=== PATIENT | female | born 1970 | race African-American/Black ===

== ENCOUNTER 2016-09-04 08:29 | Emergency (ER) | payer MEDICAID, MEDICARE ==
[2016-09-04] MEDS ORDERED: NORMAL SALINE 1000 ML 1,000 ML IV PRN (09:38)
[2016-09-04] MEDS ORDERED: OXYCODONE-ACETAMINOPHEN 5-325 MG TABLET PO ONE (09:38)
[2016-09-04] MEDS ORDERED: ONDANSETRON 4 MG TAB.RAPDIS SL ONE (09:38)
--- NOTE | 2016-09-04 09:39 | ER Document Report ---
ED Medical Screen (RME) - General Chief Complaint: Abdominal Pain Stated Complaint: ABDOMINAL AND BACK PAIN Time seen by provider: 09:38 Mode of Arrival: Wheelchair Information source: Patient TRAVEL OUTSIDE OF THE [place] IN LAST 30 DAYS: No - HPI Patient complains to provider of: abdominal pain, diarrhea Onset: Yesterday Onset/Duration: Gradual, Persistent Quality of pain: Achy Severity: Moderate Pain Level: 4 Associated Symptoms: Diarrhea, Nausea Exacerbated by: Denies Relieved by: Denies Notes: 09/04/16 09:39 46-year-old female presents to the emergency room complaining of crampy lower abdominal pain with diarrhea that's been going on since yesterday, she denies any blood in her stools, no dysuria or hematuria, no fever or chills, no sick contacts, no history of similar symptoms previously, no known gastroenterological disorders, no previous abdominal surgeries - Related Data Allergies/Adverse Reactions: No Known Allergies Allergy (Verified 09/04/16 08:39) Past Medical History - Social History Chew tobacco use (# tins/day): No Frequency of alcohol use: None Drug Abuse: None - Past Medical History Cardiac Medical History: Reports: Hx Hypertension Endocrine Medical History: Reports: Hx Diabetes Mellitus Type 2 Renal/ Medical History: Denies: Hx Peritoneal Dialysis Past Surgical History: Reports: Hx Breast Surgery - lumpectomy right, Hx Section - x 1, Hx Gynecologic Surgery - lumpectomy right breast - Immunizations Immunizations up to date: Yes Hx Diphtheria, Pertussis, Tetanus Vaccination: Yes Physical Exam - Vital signs Vitals: Temp Pulse Resp BP Pulse Ox 97.6 F 98 14 135/85 H 100 09/04/16 08:40 09/04/16 08:40 09/04/16 08:40 09/04/16 08:40 09/04/16 08:40 Course - Vital Signs Vital signs: Temp Pulse Resp BP Pulse Ox 97.6 F 98 14 135/85 H 100 09/04/16 08:40 09/04/16 08:40 09/04/16 08:40 09/04/16 08:40 09/04/16 08:40
--- NOTE | 2016-09-04 10:34 | ER Document Report ---
ED GI/ - General Chief Complaint: Abdominal Pain Stated Complaint: ABDOMINAL AND BACK PAIN Time seen by provider: 10:27 Mode of Arrival: Wheelchair Information source: Patient Notes: 46-year-old female presents to ED for complain of upper and middle abdominal pain since yesterday. She says at times it aches and at times is crampy. She denies any vomiting but states she has had 4 diarrheal stools and has been nauseated. Denies any fevers denies any bloody stools. TRAVEL OUTSIDE OF THE [place] IN LAST 30 DAYS: No - HPI Patient complains to provider of: Abdominal pain, Diarrhea. No: Vomiting Onset: Yesterday Timing/Duration: Gradual Quality of pain: Achy, Cramping Severity at maximum: Severe Severity in ED: Moderate Pain Level: 3 Location: Other - At times his uppers at times is middle and at times is lower abdominal pain Vaginal bleeding (Compared to normal period): None LMP: 08/27/2016 Associated symptoms: Diarrhea, Nausea Exacerbated by: Supine, Movement, Walking Relieved by: Denies Similar symptoms previously: Yes Recently seen / treated by doctor: No - Related Data Allergies/Adverse Reactions: No Known Allergies Allergy (Verified 09/04/16 08:39) Past Medical History - General Information source: Patient - Social History Smoking Status: Never Smoker Cigarette use (# per day): No Chew tobacco use (# tins/day): No Smoking Education Provided: No Frequency of alcohol use: None Drug Abuse: None Occupation: none Lives with: Family Family History: Arthritis, CAD, DM, Hyperlipidemia, Hypertension Patient has suicidal ideation: No Patient has homicidal ideation: No - Past Medical History Cardiac Medical History: Reports: Hx Hypertension Pulmonary Medical History: Reports: None EENT Medical History: Reports: None Neurological Medical History: Reports: None Endocrine Medical History: Reports: Hx Diabetes Mellitus Type 2 Renal/ Medical History: Reports: None Malignancy Medical History: Reports: None GI Medical History: Reports: Hx Gastritis Musculoskeltal Medical History: Reports Hx Arthritis Skin Medical History: Reports None Psychiatric Medical History: Reports: Hx Anxiety, Hx Depression Traumatic Medical History: Reports: None Infectious Medical History: Reports: None Past Surgical History: Reports: Hx Breast Surgery - lumpectomy right, Hx Section - x 1 - Immunizations Immunizations up to date: Yes Hx Diphtheria, Pertussis, Tetanus Vaccination: Yes Hx Pneumococcal Vaccination: 11/01/10 Review of Systems - Review of Systems Constitutional: No symptoms reported EENT: No symptoms reported Cardiovascular: No symptoms reported Respiratory: No symptoms reported Gastrointestinal: Abdominal pain, Diarrhea, Nausea Genitourinary: No symptoms reported Female Genitourinary: No symptoms reported Musculoskeletal: No symptoms reported Skin: No symptoms reported Hematologic/Lymphatic: No symptoms reported Neurological/Psychological: No symptoms reported -: Yes All other systems reviewed and negative Physical Exam - Vital signs Vitals: Temp Pulse Resp BP Pulse Ox 97.6 F 98 14 135/85 H 100 09/04/16 08:40 09/04/16 08:40 09/04/16 08:40 09/04/16 08:40 09/04/16 08:40 Interpretation: Normal - General General appearance: Appears well, Alert - HEENT Head: Normocephalic, Atraumatic Eyes: Normal Pupils: PERRL - Respiratory Respiratory status: No respiratory distress Chest status: Nontender Breath sounds: Normal Chest palpation: Normal - Cardiovascular Rhythm: Regular Heart sounds: Normal auscultation Murmur: No - Abdominal Inspection: Normal Distension: No distension Bowel sounds: Normal Tenderness: Tender - Generalized Organomegaly: No organomegaly - Back Back: Normal, Nontender - Extremities General upper extremity: Normal inspection, Nontender, Normal color, Normal ROM , Normal temperature General lower extremity: Normal inspection, Nontender, Normal color, Normal ROM , Normal temperature, Normal weight bearing. No: Clemencia's sign - Neurological Neuro grossly intact: Yes Cognition: Normal Orientation: AAOx4 Trudy Coma Scale Eye Opening: Spontaneous [place] Coma Scale Verbal: Oriented [place] Coma Scale Motor: Obeys Commands [place] Coma Scale Total: 15 Speech: Normal Motor strength normal: LUE, RUE, LLE, RLE Sensory: Normal - Psychological Associated symptoms: Normal affect, Normal mood - Skin Skin Temperature: Warm Skin Moisture: Dry Skin Color: Normal Course - Re-evaluation Re-evalutation: 09/04/16 14:51 Discussed labs and assessment with Dr. Murray and a KUB and CT of abdomen and pelvis were ordered KUB and CT were both negative. Labs KUB and CT were discussed with patient. We'll discharge patient home with nausea medicine and have her follow-up with her primary doctor. - Vital Signs Vital signs: Temp Pulse Resp BP Pulse Ox 97.9 F 83 18 140/81 H 98 09/04/16 15:27 09/04/16 15:27 09/04/16 15:27 09/04/16 15:27 09/04/16 15:27 - Laboratory Result Diagrams: 09/04/16 09:45 09/04/16 09:45 Laboratory results interpreted by me: 09/04/16 09/04/16 09/04/16 09:45 09:45 09:45 RDW 14.1 H Glucose 131 H Urine Glucose (UA) >=500 H Urine Ketones 20 H - Diagnostic Test Radiology reviewed: Image reviewed, Reports reviewed Discharge - Discharge Clinical Impression: Abdominal pain Qualifiers: Abdominal location: generalized Qualified Code(s): R10.84 - Generalized abdominal pain Back pain Qualifiers: Back pain location: low back pain Chronicity: chronic Back pain laterality: bilateral Sciatica presence: without sciatica Qualified Code(s): M54.5 - Low back pain Condition: Stable Disposition: HOME, SELF-CARE Additional Instructions: ABDOMINAL PAIN: There are many causes of abdominal pain. Pain can mean a serious problem requiring surgery (such as appendicitis). It can also be an innocent problem that goes away on its own (such as a viral infection). Often, time must pass to determine the cause of pain. The physician does not feel that hospitalization is necessary, at present. Things may change within the next 24 hours. Call the doctor or come back for re- examination if any problems occur, such as: (1) Pain that becomes more severe, steady, or becomes concentrated in one specific area. Also, pain that is more severe with movement or coughing. (2) Vomiting that persists or becomes more frequent. (3) Blood in the vomitus, urine, or bowel movements. Blood in the stool may have a tarry or black appearance. (4) Shaking chills or fever greater than 100 degrees F. (5) The abdomen becomes more distended or swollen. (6) Bowel movements cease. (7) Failure to improve as expected. ANTINAUSEA MEDICATION: You have been given a medication to suppress nausea and vomiting. This type of medication can be given as a shot, pill, or suppository. It will usually last for many hours. Pills and shots usually last six to eight hours, suppositories last about 12 hours. For the typical illness, only one or two doses of the medication may be necessary. Mild lightheadedness may occur. This type of medicine can cause drowsiness. Do not drive or operate dangerous machinery while under its influence. Do not mix with alcohol. See your doctor at once if you have muscle spasms or tightness, or uncontrollable motions (particularly of the neck, mouth, or jaw). Persistent vomiting or severe lightheadedness should also be evaluated by the physician. ORAL NARCOTIC MEDICATION: You have been given a prescription for pain control. This medication is a narcotic. It's best taken with food, as nausea can result if taken on an empty stomach. Don't operate machinery or drive within six hours of taking this medication. Do not combine this medicine with alcohol, or with any medication which can cause sedation (such as cold tablets or sleeping pills) unless you get permission from the physician. Narcotics tend to cause constipation. If possible, drink plenty of fluids and eat a diet high in fiber and fruits. Please be aware that prescription narcotics also have the potential for abuse. People become addicted to these medications because of the general sense of wellbeing that they induce. This feeling along with a significant reduction in tension, anxiety, and aggression provides a stimulating seductive quality to these drugs. Once your pain is under control, we encourage you to discard your unused narcotics. A copy of reports of your labs CT and x-ray were sent home with you to follow- up with your primary doctor. Please complete the patient's satisfaction survey if you get one and return. If you do not receive a survey you can go to [facility] website [email or web address] and place your comments about your very good care. Thank you very much. It was a pleasure be in your medical provider today. FOLLOW-UP CARE: If you have been referred to a physician for follow-up care, call the physician s office for an appointment as you were instructed or within the next two days. If you experience worsening or a significant change in your symptoms, notify the physician immediately or return to the Emergency Department at any time for re-evaluation. Prescriptions: Hydrocodone/Acetaminophen [[place] 5-325 mg Tablet] 1 tab PO Q6HP PRN #7 tablet PRN Reason: Ondansetron [Zofran Odt 4 mg Tablet] 1 tab PO Q6H #15 tab.rapdis Forms: Elevated Blood Pressure Referrals: HUYEN BHANDARI MD [Primary Care Provider] - Follow up as needed
[2016-09-04 11:05] LABS: ABSOLUTE EOSINOPHILS # (AUTO) 0.1 10^3/uL (0.0-0.6); ABSOLUTE LYMPHOCYTES (AUTO) 1.7 10^3/uL (0.5-4.7); ABSOLUTE MONOCYTES (AUTO) 0.7 10^3/uL (0.1-1.4); ABSOLUTE NEUT (AUTO) 5.6 10^3/uL (1.7-8.2); BASOPHILS % (AUTO) 0.2 % (0-2); EOSINOPHILS % (AUTO) 0.8 % (0-6); HEMATOCRIT 38.8 % (36.0-47.0); HEMOGLOBIN 12.8 g/dL (12.0-15.5); HGB HCT DIFFERENCE -0.4; LYMPHOCYTES % (AUTO) 21.2 % (13-45); MEAN CORPUSCULAR HGB CONC 32.9 g/dL (32.0-36.0); MEAN CORPUSCULAR VOLUME 82 fl (80-97); MONOCYTES % (AUTO) 8.7 % (3-13); RED BLOOD COUNT 4.73 10^6/uL (3.72-5.28); RED CELL DISTRIBUTION WIDTH 14.1 % (11.5-14.0); SEGMENTED NEUTROPHILS % (AUTO) 69.1 % (42-78); WHITE BLOOD COUNT 8.1 10^3/uL (4.0-10.5)
[2016-09-04 11:19] LABS: APPEARANCE,URINE CLEAR; BILIRUBIN,URINE NEGATIVE (NEGATIVE); GLUCOSE, URINE >=500 mg/dL (NEGATIVE); KETONES,URINE 20 mg/dL (NEGATIVE); LEUKOCYTE ESTERASE,URINE NEGATIVE (NEGATIVE); NITRITE,URINE NEGATIVE (NEGATIVE); PROTEIN,URINE NEGATIVE (NEGATIVE); URINE SPECIFIC GRAVITY 1.036; UROBILINOGEN,URINE NEGATIVE mg/dL (<2.0)
[2016-09-04 11:25] LABS: ALANINE AMINOTRANSFERASE 29 U/L (9-52); ALBUMIN 4.2 g/dL (3.5-5.0); ALKALINE PHOSPHATASE 97 U/L (38-126); ANION GAP 13 (5-19); ASPARTATE AMINO TRANSFERASE 22 U/L (14-36); BILIRUBIN,DIRECT 0.3 mg/dL (0.0-0.4); BILIRUBIN,TOTAL 0.6 mg/dL (0.2-1.3); BLOOD UREA NITROGEN 8 mg/dL (7-20); CALCIUM 9.3 mg/dL (8.4-10.2); CARBON DIOXIDE 25 mmol/L (22-30); CHLORIDE 105 mmol/L (98-107); GLUCOSE 131 mg/dL (75-110); LIPASE 69.9 U/L (23-300); POTASSIUM 3.7 mmol/L (3.6-5.0); SODIUM 143.4 mmol/L (137-145); TOTAL PROTEIN 7.6 g/dL (6.3-8.2)
[2016-09-04 15:28] VITALS: BP 140/81
== END 2016-09-04 15:28 | disposition home or self-care (01) ==
LOC: ER 08:29
DX: R10.84 Generalized abdominal pain (principal); M54.5 Low back pain; G89.29 Other chronic pain; R19.7 Diarrhea, unspecified; R11.0 Nausea; I10 Essential (primary) hypertension; E11.9 Type 2 diabetes mellitus without complications
CPT/HCPCS: 99284; 96360; 36415; 87086; 83690; 85025; 80053; 81001; 74000; 74177; A9270 ×2; J7030; S0119

== ENCOUNTER 2016-12-08 07:52 | Emergency (ER) | payer MEDICARE, MEDICAID ==
[2016-12-08 07:59] VITALS: BP 144/75
[2016-12-08] MEDS ORDERED: LIDOCAINE 1% INJ-PF (10 MG/ML) 30 ML SDV INJ ONE (08:12)
[2016-12-08] MEDS ORDERED: SULFAMETHOXAZOLE/TRIMETHOPRIM 800-160 MG TABLET PO ONE (08:13)
--- NOTE | 2016-12-08 09:36 | ER Document Report ---
ED Skin Rash/Insect Bite/Abscs - General Chief Complaint: Abscess Stated Complaint: POSSIBLE ABSCESS Time Seen by Provider: 12/08/16 08:05 Mode of Arrival: Ambulatory Information source: Patient Notes: Patient is a 46-year-old female with a history of abscesses who presents to the ER today for an abscess to her right axilla 4 days. Patient states that it is gotten very painful and larger over the past couple of days. She denies any fever, chills, drainage, history of MRSA. TRAVEL OUTSIDE OF THE [place] IN LAST 30 DAYS: No - Related Data Allergies/Adverse Reactions: No Known Allergies Allergy (Verified 09/04/16 08:39) Past Medical History - General Information source: Patient - Social History Smoking Status: Never Smoker Chew tobacco use (# tins/day): No Frequency of alcohol use: None Drug Abuse: None Family History: Arthritis, CAD, DM, Hyperlipidemia, Hypertension Patient has suicidal ideation: No Patient has homicidal ideation: No - Past Medical History Cardiac Medical History: Reports: Hx Hypertension Endocrine Medical History: Reports: Hx Diabetes Mellitus Type 2 Renal/ Medical History: Denies: Hx Peritoneal Dialysis GI Medical History: Reports: Hx Gastritis Musculoskeltal Medical History: Reports Hx Arthritis Psychiatric Medical History: Reports: Hx Anxiety, Hx Depression Past Surgical History: Reports: Hx Breast Surgery - lumpectomy right, Hx Section - x 1, Hx Gynecologic Surgery - lumpectomy right breast - Immunizations Immunizations up to date: Yes Hx Diphtheria, Pertussis, Tetanus Vaccination: Yes Hx Pneumococcal Vaccination: 03/20/10 Review of Systems - Review of Systems Constitutional: No symptoms reported EENT: No symptoms reported Cardiovascular: No symptoms reported Respiratory: No symptoms reported Gastrointestinal: No symptoms reported Genitourinary: No symptoms reported Female Genitourinary: No symptoms reported Musculoskeletal: No symptoms reported Skin: See HPI Hematologic/Lymphatic: No symptoms reported Neurological/Psychological: No symptoms reported Physical Exam - Vital signs Vitals: Temp Pulse Resp BP Pulse Ox 98 F 85 20 144/75 H 100 12/08/16 07:56 12/08/16 07:56 12/08/16 07:56 12/08/16 07:56 12/08/16 07:56 - Notes Notes: PHYSICAL EXAMINATION: GENERAL: Well-appearing and in no acute distress. HEAD: Atraumatic, normocephalic. EYES: Pupils equal round and reactive to light, extraocular movements intact, sclera anicteric, conjunctiva are normal. NECK: Normal range of motion, supple without lymphadenopathy LUNGS: CTAB and equal. No wheezes rales or rhonchi. HEART: Regular rate and rhythm without murmurs EXTREMITIES: Normal range of motion, no pitting edema. No cyanosis. NEUROLOGICAL: Cranial nerves grossly intact. Normal sensory/motor exams. PSYCH: Normal mood, normal affect. SKIN: Warm, Dry, normal turgor, 3cm in diameter abscess, fluctuant, erythematous to right axilla, tender Course - Re-evaluation Re-evalutation: 12/08/16 09:33 This was incised and drained successfully. Patient tolerated well. Patient was placed on Bactrim. Culture is pending. - Vital Signs Vital signs: Temp Pulse Resp BP Pulse Ox 98 F 85 20 144/75 H 100 12/08/16 07:56 12/08/16 07:56 12/08/16 07:56 12/08/16 07:56 12/08/16 07:56 Procedures - Incision and Drainage Right Arm Time completed: 09:30 Type: Simple Anesthetic type: 1% Lidocaine mL's of anesthetic: 4 Blade size: 11 I&D procedure: Betadine prep applied Incision Method: Incision made by scalpel Amount/type of drainage: purulent drainage and some blood, foul odor Discharge - Discharge Clinical Impression: Abscess Condition: Stable Disposition: HOME, SELF-CARE Instructions: Post Incision and Drainage, Trimethoprim-Sulfa ([facility]) Additional Instructions: Return immediately for any new or worsening symptoms. Follow up with primary care provider, call tomorrow to make followup appointment. Prescriptions: Clotrimazole [Mycelex 10 mg Adrián] 10 mg MM DAILY #14 adrián Sulfamethoxazole/Trimethoprim [Bactrim Ds Tablet] 1 each PO BID #20 tablet
== END 2016-12-08 09:45 | disposition home or self-care (01) ==
LOC: ER 07:52
PROC: 0H9BXZZ Drainage of Right Upper Arm Skin, External Approach (ICD-10-PCS; principal; 2016-12-08)
DX: L02.411 Cutaneous abscess of right axilla (principal); E11.9 Type 2 diabetes mellitus without complications; I10 Essential (primary) hypertension
CPT/HCPCS: 10060; 99283; 87070; 87205; 87075; 87077; 87186; J3490; A9270

== ENCOUNTER 2017-06-22 20:36 | Emergency (ER) | payer MEDICARE, OTHER ==
[2017-06-22] MEDS ORDERED: ACETAMINOPHEN 325 MG TABLET PO ONE (20:56)
[2017-06-22] MEDS ORDERED: IBUPROFEN 600 MG TABLET PO ONE (21:49)
[2017-06-22 21:51] LABS: A TYPE INFLUENZA AG NEGATIVE (NEGATIVE); B INFLUENZA AG POSITIVE (NEGATIVE)
--- NOTE | 2017-06-22 22:08 | RADIOLOGY REPORT (SQ) ---
EXAM DESCRIPTION: CHEST PA/LAT COMPLETED DATE/TIME: 06/22/2017 9:59 pm REASON FOR STUDY: cough, fever COMPARISON: 08/31/2015 EXAM PARAMETERS: NUMBER OF VIEWS: two views TECHNIQUE: Digital Frontal and Lateral radiographic views of the chest acquired. RADIATION DOSE: NA LIMITATIONS: none FINDINGS: LUNGS AND PLEURA: No opacities, masses or pneumothorax. No pleural effusion. MEDIASTINUM AND HILAR STRUCTURES: No masses or contour abnormalities. HEART AND VASCULAR STRUCTURES: Heart normal size. No evidence for failure. BONES: No acute findings. HARDWARE: None in the chest. OTHER: No other significant finding. IMPRESSION: NO SIGNIFICANT RADIOGRAPHIC FINDING IN THE CHEST. TECHNICAL DOCUMENTATION: JOB ID: [id number] [employer]- All Rights Reserved
--- NOTE | 2017-06-22 22:24 | ER Document Report ---
ED General - General Chief Complaint: Flu Symptoms Stated Complaint: FEVER,COUGH Time Seen by Provider: 06/22/17 21:48 Notes: Patient is a 46-year-old female without significant past medical history presents with cough, sputum production, body aches, nausea, vomiting and diarrhea for the past 2 days. She did receive the influenza vaccine this year. Multiple sick contacts with the same symptoms. She denies any shortness of breath, syncope, or inability to tolerate oral fluids. No dysuria. She describes her body aches as a constant, aching diffuse body pain. She has been trying ibuprofen and Tylenol with some improvement of the pain. Nothing worsens her symptoms. She has not seen her general doctor regarding today's concerns. TRAVEL OUTSIDE OF THE [place] IN LAST 30 DAYS: No - Related Data Allergies/Adverse Reactions: No Known Allergies Allergy (Verified 06/22/17 20:38) Past Medical History - General Information source: Patient - Social History Smoking Status: Never Smoker Frequency of alcohol use: None Drug Abuse: None Lives with: Family Family History: Arthritis, CAD, DM, Hyperlipidemia, Hypertension Patient has suicidal ideation: No Patient has homicidal ideation: No - Past Medical History Cardiac Medical History: Reports: Hx Hypertension Endocrine Medical History: Reports: Hx Diabetes Mellitus Type 2 Renal/ Medical History: Denies: Hx Peritoneal Dialysis GI Medical History: Reports: Hx Gastritis Musculoskeltal Medical History: Reports Hx Arthritis Psychiatric Medical History: Reports: Hx Anxiety, Hx Depression Past Surgical History: Reports: Hx Breast Surgery - lumpectomy right, Hx Section - x 1, Hx Gynecologic Surgery - lumpectomy right breast - Immunizations Immunizations up to date: Yes Hx Diphtheria, Pertussis, Tetanus Vaccination: Yes Hx Pneumococcal Vaccination: 03/20/10 Review of Systems - Review of Systems Notes: Constitutional: Positive for fever. HENT: Negative for sore throat. Eyes: Negative for visual changes. Cardiovascular: Negative for chest pain. Respiratory: Negative for shortness of breath. Positive for cough Gastrointestinal: Negative for abdominal pain, positive for vomiting and diarrhea Genitourinary: Negative for dysuria. Musculoskeletal: Negative for back pain. Skin: Negative for rash. Neurological: Negative for headaches, weakness or numbness. 10 point ROS negative except as marked above and in HPI. Physical Exam - Vital signs Vitals: Temp Pulse BP Pulse Ox 102.6 F H 109 H 144/74 H 98 02/03/18 20:54 06/22/17 20:54 06/22/17 20:54 06/22/17 20:54 Interpretation: Tachycardic, Febrile Notes: PHYSICAL EXAMINATION: GENERAL: Appears uncomfortable but in no acute distress HEAD: Atraumatic, normocephalic. EYES: Pupils equal round and reactive to light, extraocular movements intact, sclera anicteric, conjunctiva are normal. ENT: nares patent, oropharynx clear without exudates. Moderately dry mucous membranes. NECK: Normal range of motion, supple without lymphadenopathy LUNGS: Breath sounds clear to auscultation bilaterally and equal. No wheezes rales or rhonchi. HEART: Regular tachycardia without murmurs ABDOMEN: Soft, nontender, normoactive bowel sounds. No guarding, no rebound. No masses appreciated. EXTREMITIES: Normal range of motion, no pitting or edema. No cyanosis. NEUROLOGICAL: No focal neurological deficits. Moves all extremities spontaneously and on command. PSYCH: Normal mood, normal affect. SKIN: Warm, Dry, normal turgor, no rashes or lesions noted. Course - Re-evaluation Re-evalutation: 06/22/17 22:26 Patient presents with cough, vomiting, diarrhea, and fever at home consistent with a diagnosis of influenza. Influenza testing is positive. Patient is overall well in appearance, in no acute distress. Lung sounds clear. Able to tolerate oral intake without difficulty here in the emergency department. After risks and benefits conversation with the patient regarding the use of Tamiflu, they have elected to use supportive care without Tamiflu based on concerns about lack of efficacy as well as the side effect profile. At this time will discharge with return precautions and follow-up recommendations. Verbal discharge instructions given a the bedside and opportunity for questions given. Medication warnings reviewed. Patient is in agreement with this plan and has verbalized understanding of return precautions and the need for primary care follow-up in the next 24-72 hours. - Vital Signs Vital signs: Temp Pulse Resp BP Pulse Ox 99.9 F 98 18 133/74 H 98 06/22/17 22:44 06/22/17 22:44 06/22/17 22:44 06/22/17 22:44 06/22/17 22:44 - Diagnostic Test Radiology reviewed: Image reviewed, Reports reviewed Radiology results interpreted by me: 06/22/17 22:26 Chest x-ray: No acute infiltrate or pneumothorax Discharge - Discharge Clinical Impression: Influenza B Condition: Stable Disposition: HOME, SELF-CARE Additional Instructions: You have influenza. There is no treatment that is effective for this diagnosis other than supportive care at home. This includes drinking plenty of fluids, using Tylenol or ibuprofen as needed for fever and discomfort, and Zofran as needed for nausea and vomiting. Please follow closely with you primary care physician the next 1-2 days regarding this diagnosis. Return to the emergency department immediately if you began to have persistent vomiting prevents you from being able to keep fluids down for more than 12 hours, you pass out, you began having difficulty breathing, you become confused, or you have any other symptoms that are worrisome to you. Forms: Return to Work Referrals: HUYEN BHANDARI MD [Primary Care Provider] - Follow up as needed
[2017-06-22] MEDS ORDERED: ONDANSETRON ODT 4 MG TAB (6 TAB/ER DISP) PO PRN (22:27)
[2017-06-22 22:46] VITALS: BP 133/74
== END 2017-06-22 22:44 | disposition home or self-care (01) ==
LOC: ER 20:36
DX: J10.1 Influenza due to other identified influenza virus with other respiratory manifestations (principal); R50.9 Fever, unspecified; M79.1 Myalgia; I10 Essential (primary) hypertension; E11.9 Type 2 diabetes mellitus without complications
CPT/HCPCS: 99283; 87804; 71046; A9270 ×3

== ENCOUNTER 2017-06-27 09:24 | Emergency (ER) | payer MEDICARE, OTHER ==
--- NOTE | 2017-06-27 10:56 | ER Document Report ---
HPI - HPI Patient complains to provider of: Sore throat, congestion Onset: Other - 4 days Onset/Duration: Persistent Quality of pain: Achy Pain Level: 5 Context: Patient states she was recently diagnosed with the flu. Patient states for the past 4 days she has had sore throat and congestion. Patient denies any fever. Patient complains of difficulty swallowing due to throat discomfort. Associated Symptoms: Body/muscle aches, Nonproductive cough, Rhinnorhea, Sore throat. denies: Fever Exacerbated by: Denies Relieved by: Denies Similar symptoms previously: No Recently seen / treated by doctor: Yes - ROS ROS below otherwise negative: Yes Systems Reviewed and Negative: Yes All other systems reviewed and negative - CONSTITUTIONAL Constitutional: DENIES: Fever - EENT EENT: REPORTS: Sore Throat - RESPIRATORY Respiratory: REPORTS: Coughing - GASTROINTESTINAL Gastrointestinal: DENIES: Patient vomiting - REPRODUCTIVE Reproductive: DENIES: : - MUSCULOSKELETAL Musculoskeletal: DENIES: Back Pain, Neck Pain - DERM Skin Color: Normal Skin Problems: None Past Medical History - General Information source: Patient - Social History Smoking Status: Never Smoker Chew tobacco use (# tins/day): No Frequency of alcohol use: None Drug Abuse: None Lives with: Family Family History: Arthritis, CAD, DM, Hyperlipidemia, Hypertension Patient has suicidal ideation: No Patient has homicidal ideation: No - Past Medical History Cardiac Medical History: Reports: Hx Hypertension Endocrine Medical History: Reports: Hx Diabetes Mellitus Type 2 Renal/ Medical History: Denies: Hx Peritoneal Dialysis GI Medical History: Reports: Hx Gastritis Musculoskeltal Medical History: Reports Hx Arthritis Psychiatric Medical History: Reports: Hx Anxiety, Hx Depression Past Surgical History: Reports: Hx Breast Surgery - lumpectomy right, Hx Section - x 1, Hx Gynecologic Surgery - lumpectomy right breast - Immunizations Immunizations up to date: Yes Hx Diphtheria, Pertussis, Tetanus Vaccination: Yes Hx Pneumococcal Vaccination: 03/20/10 Vertical Provider Document - CONSTITUTIONAL Agree With Documented VS: Yes Exam Limitations: No Limitations General Appearance: WD/WN, No Apparent Distress - INFECTION CONTROL TRAVEL OUTSIDE OF THE [place] IN LAST 30 DAYS: No - HEENT HEENT: Atraumatic, Normocephalic, Pharyngeal Tenderness, Pharyngeal Erythema - NECK Neck: Lymphadenopathy-Left, Lymphadenopathy-Right - RESPIRATORY Respiratory: Breath Sounds Normal, No Respiratory Distress O2 Sat by Pulse Oximetry: 98 - CARDIOVASCULAR Cardiovascular: Regular Rate, Regular Rhythm, No Murmur - BACK Back: Normal Inspection - MUSCULOSKELETAL/EXTREMETIES Musculoskeletal/Extremeties: MAEW - NEURO Level of Consciousness: Awake, Alert, Appropriate Motor/Sensory: No Motor Deficit - DERM Integumentary: Warm, Dry, No Rash Course - Re-evaluation Re-evalutation: 06/27/17 13:10 Respirations unlabored. Patient tolerating oral fluids without difficulty. Patient managing oral secretions. 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 Discussed results of studies with patient, patient encouraged to follow-up with primary doctor for recheck. 06/27/17 13:13 The patient has been informed that they may have pre-hypertension or hypertension based on a blood pressure reading in the emergency department. I recommend that patient call the primary care provider listed on their discharge instructions or a physician of their choice by this week to arrange follow-up for further evaluation of possible pre-hypertension or hypertension. Controlled substance database reviewed - Vital Signs Vital signs: Temp Pulse Resp BP Pulse Ox 98.1 F 87 20 156/88 H 98 06/27/17 09:46 06/27/17 09:46 06/27/17 09:46 06/27/17 09:46 06/27/17 09:46 - Laboratory Result Diagrams: 06/27/17 11:00 06/27/17 11:00 Laboratory results interpreted by me: 06/27/17 13:10 Labs- Entire Visit 06/27/17 06/27/17 06/27/17 11:00 11:00 11:00 WBC 8.0 RBC 4.79 Hgb 13.1 Hct 38.9 MCV 81 MCH 27.3 MCHC 33.6 RDW 14.2 H Plt Count 240 Seg Neutrophils % 54.9 Lymphocytes % 35.7 Monocytes % 8.6 Eosinophils % 0.5 Basophils % 0.3 Absolute Neutrophils 4.4 Absolute Lymphocytes 2.8 Absolute Monocytes 0.7 Absolute Eosinophils 0.0 Absolute Basophils 0.0 Sodium 142.6 Potassium 3.9 Chloride 105 Carbon Dioxide 27 Anion Gap 11 BUN 9 Creatinine 0.56 Est GFR ( Amer) > 60 Est GFR (Non-Af Amer) > 60 Glucose 254 H Calcium 9.8 Total Bilirubin 0.4 Direct Bilirubin 0.4 Neonat Total Bilirubin Not Reportable Neonat Direct Bilirubin Not Reportable Neonat Indirect Bili Not Reportable AST 21 ALT 36 Alkaline Phosphatase 99 Total Protein 7.5 Albumin 4.2 Monotest NEGATIVE Group A Strep Rapid 06/27/17 11:00 WBC RBC Hgb Hct MCV MCH MCHC RDW Plt Count Seg Neutrophils % Lymphocytes % Monocytes % Eosinophils % Basophils % Absolute Neutrophils Absolute Lymphocytes Absolute Monocytes Absolute Eosinophils Absolute Basophils Sodium Potassium Chloride Carbon Dioxide Anion Gap BUN Creatinine Est GFR ( Amer) Est GFR (Non-Af Amer) Glucose Calcium Total Bilirubin Direct Bilirubin Neonat Total Bilirubin Neonat Direct Bilirubin Neonat Indirect Bili AST ALT Alkaline Phosphatase Total Protein Albumin Monotest Group A Strep Rapid NEGATIVE - Diagnostic Test Radiology reviewed: Reports reviewed Discharge - Discharge Clinical Impression: Hx of essential hypertension Pharyngitis Qualifiers: Pharyngitis/tonsillitis etiology: unspecified etiology Qualified Code(s): J02.9 - Acute pharyngitis, unspecified Condition: Stable Disposition: HOME, SELF-CARE Instructions: Oral Narcotic Medication ([facility]), Sore Throat ([facility]) Additional Instructions: Return immediately for any new or worsening symptoms Followup with your primary care provider, call tomorrow to make a followup appointment Prescriptions: Oxycodone HCl/Acetaminophen [Percocet 5-325 mg Tablet] 1 tab PO ASDIR PRN #10 tablet PRN Reason: Forms: Elevated Blood Pressure Referrals: HUYEN BHANDARI MD [Primary Care Provider] - Follow up tomorrow
[2017-06-27 11:22] LABS: ABSOLUTE LYMPHOCYTES (AUTO) 2.8 10^3/uL (0.5-4.7); ABSOLUTE MONOCYTES (AUTO) 0.7 10^3/uL (0.1-1.4); ABSOLUTE NEUT (AUTO) 4.4 10^3/uL (1.7-8.2); BASOPHILS % (AUTO) 0.3 % (0-2); EOSINOPHILS % (AUTO) 0.5 % (0-6); HEMATOCRIT 38.9 % (36.0-47.0); HEMOGLOBIN 13.1 g/dL (12.0-15.5); LYMPHOCYTES % (AUTO) 35.7 % (13-45); MEAN CORPUSCULAR HEMOGLOBIN 27.3 pg (27.0-33.4); MEAN CORPUSCULAR HGB CONC 33.6 g/dL (32.0-36.0); MEAN CORPUSCULAR VOLUME 81 fl (80-97); MONOCYTES % (AUTO) 8.6 % (3-13); PLATELET COUNT 240 10^3/uL (150-450); RED BLOOD COUNT 4.79 10^6/uL (3.72-5.28); RED CELL DISTRIBUTION WIDTH 14.2 % (11.5-14.0); SEGMENTED NEUTROPHILS % (AUTO) 54.9 % (42-78); TOTAL CELLS COUNTED % (AUTO) 100 %
[2017-06-27] MEDS ORDERED: OXYCODONE-ACETAMINOPHEN 5-325 MG TABLET PO ONE (11:38)
[2017-06-27] MEDS ORDERED: DEXAMETHASONE SOD PHOS INJ 10 MG/1 ML VIAL IV ONE (11:38)
[2017-06-27 11:48] LABS: ALANINE AMINOTRANSFERASE 36 U/L (9-52); ALBUMIN 4.2 g/dL (3.5-5.0); ALKALINE PHOSPHATASE 99 U/L (38-126); ANION GAP 11 (5-19); ASPARTATE AMINO TRANSFERASE 21 U/L (14-36); BILIRUBIN,DIRECT 0.4 mg/dL (0.0-0.4); BILIRUBIN,TOTAL 0.4 mg/dL (0.2-1.3); BLOOD UREA NITROGEN 9 mg/dL (7-20); CALCIUM 9.8 mg/dL (8.4-10.2); CARBON DIOXIDE 27 mmol/L (22-30); CHLORIDE 105 mmol/L (98-107); GLUCOSE 254 mg/dL (75-110); POTASSIUM 3.9 mmol/L (3.6-5.0); SODIUM 142.6 mmol/L (137-145); TOTAL PROTEIN 7.5 g/dL (6.3-8.2)
--- NOTE | 2017-06-27 12:28 | RADIOLOGY REPORT (SQ) ---
EXAM DESCRIPTION: CT SOFT TISSUE NECK WITH COMPLETED DATE/TIME: 06/27/2017 12:17 pm REASON FOR STUDY: throat pain, diff swallowing COMPARISON: None. TECHNIQUE: Post IV contrasted scanning from skull base through lung apices with review of bone, soft tissue and lung windows. Reconstructed coronal and sagittal MPR images reviewed. All images stored on PACS. All CT scanners at this facility use dose modulation, iterative reconstruction, and/or weight based d osing when appropriate to reduce radiation dose to as low as reasonably achievable (ALARA). [facility]: Dose Right [facility]: CareDose [facility]: Dose Right [facility]: Teradose 4D [facility]: Kadient CONTRAST TYPE AND DOSE: contrast/concentration: Isovue 370.00 mg/ml; Total Contrast Delivered: 75.0 ml; Total Saline Delivered: 55.0 ml RENAL FUNCTION: Creatinine 0.56 RADIATION DOSE: CT Rad equipment meets quality standard of care and radiation dose reduction techniq ues were employed. CTDIvol: 18.8 mGy. DLP: 551 mGy-cm. . LIMITATIONS: None. FINDINGS: SKULL BASE: Inferior brain parenchyma in the field of view unremarkable. MAJOR SALIVARY GLANDS: No solid or cystic masses. No inflammatory changes. LYMPHADENOPATHY: No diffuse bulky cervical adenopathy. Mildly enlarged left jugulodigastric lymph no de, 14 x 9 mm in size on axial image 39. MUCOSAL MASSES OR ASYMMETRY: No mucosal masses or asymmetry. Pharyngeal tonsils are normal size. No intra tonsillar or peritonsillar abscess. No peritonsillar inflammation in the deep parapharyngeal fat. LARYNX/CORDS: No abnormal findings. VASCULAR STRUCTURES: The major vessels are patent. LUNG APICES: Clear. BONES: Intact. THYROID: Normal size. No masses. PARANASAL SINUSES: Clear. OTHER: No other significant finding. IMPRESSION: No evidence of intra tonsillar or peritonsillar abscess. No airway compromise. TECHNICAL DOCUMENTATION: JOB ID: [id number] Quality ID # [id number]: Final reports with documentation of one or more dose reduction techniques (e.g., Au tomated exposure control, adjustment of the mA and/or kV according to patient size, use of iterative reconstruction technique) 2010 [employer]- All Rights Reserved
[2017-06-27 13:25] VITALS: BP 127/65
== END 2017-06-27 13:23 | disposition home or self-care (01) ==
LOC: ER 09:24
DX: J02.9 Acute pharyngitis, unspecified (principal); M79.1 Myalgia; J34.89 Other specified disorders of nose and nasal sinuses; I10 Essential (primary) hypertension; E11.9 Type 2 diabetes mellitus without complications
CPT/HCPCS: 99284; 96374; 36415; 87070; 87880; 85025; 87077; 86308; 80053; 70491; A9270; J1100

== ENCOUNTER → 2017-09-21 | Outpatient (CLI) | payer MEDICARE, OTHER ==
--- NOTE | 2017-09-21 09:00 | RADIOLOGY REPORT (SQ) ---
EXAM DESCRIPTION: C SP 4 OR 5 VIEWS COMPLETED DATE/TIME: 09/21/2017 8:48 am REASON FOR STUDY: TRAPEZIUS MUSCLE SPASM COMPARISON: CT from 06/27/2017. NUMBER OF VIEWS: Five views. TECHNIQUE: AP, lateral, obliques and odontoid radiographic images acquired of the cervical spine. LIMITATIONS: None. FINDINGS: MINERALIZATION: Normal. ALIGNMENT: Anatomic. VERTEBRAE: Vertebral bodies of normal height. DISCS: Stable degree of multilevel degenerative disc disease most notable at the C6-C7 level. FORAMINA: Mild bilateral neural foraminal narrowing C6-C7. LATERAL AND POSTERIOR ELEMENTS: Facets, lateral masses and spinous processes without significant find ings. HARDWARE: None in the spine. SOFT TISSUES: No masses or calcifications. Lung apices clear. OTHER: No other significant finding. IMPRESSION: NO ACUTE OSSEOUS ABNORMALITY. NO SIGNIFICANT CHANGE WHEN COMPARED TO CT FROM 06/27/2017. TECHNICAL DOCUMENTATION: JOB ID: [id number] [employer]- All Rights Reserved Reading location - IP/workstation name: [email or web address]
== END ==
LOC: OD 08:09
PROVIDERS: ATTEND Family Medicine
DX: M62.838 Other muscle spasm (principal)
CPT/HCPCS: 72050

== ENCOUNTER → 2018-01-15 | Outpatient (CLI) | payer MEDICARE ==
--- NOTE | 2018-01-15 15:19 | RADIOLOGY REPORT (SQ) ---
EXAM DESCRIPTION: ANKLE RIGHT COMPLETE COMPLETED DATE/TIME: 01/15/2018 3:07 pm REASON FOR STUDY: ACUTE RT ANKLE PAIN M25.571 PAIN IN RIGHT ANKLE AND JOINTS OF RIGHT FOOT COMPARISON: 07/03/2009 NUMBER OF VIEWS: Three views. TECHNIQUE: AP, lateral, and oblique radiographic images acquired of the right ankle. LIMITATIONS: None. FINDINGS: MINERALIZATION: Normal. BONES: No acute fracture or dislocation. No worrisome bone lesions. JOINTS: No effusions. SOFT TISSUES: No soft tissue swelling. No foreign body. OTHER: No other significant finding. IMPRESSION: NEGATIVE STUDY OF THE RIGHT ANKLE. NO RADIOGRAPHIC EVIDENCE OF ACUTE INJURY. TECHNICAL DOCUMENTATION: JOB ID: [id number] [employer]- All Rights Reserved Reading location - IP/workstation name: [email or web address]
== END ==
LOC: OD 14:38
PROVIDERS: ATTEND Nurse Practitioner Family
DX: M25.571 Pain in right ankle and joints of right foot (principal)